=== PATIENT | female | born 1995 | race Two or more races ===

== ENCOUNTER 2020-10-29 23:08 | Emergency (ER) | payer MEDICAID ==
[~2020-10-29] VITALS: Ht 160 cm; Wt 73.9 kg
[2020-10-29] MEDS ORDERED: ACETAMINOPHEN ES 500 MG TABLET PO ONE (23:15)
[2020-10-29] MEDS ORDERED: ONDANSETRON 4 MG/2 ML VIAL IV ONE (23:15)
[2020-10-29] MEDS ORDERED: IV NORMAL SALINE 1000 ML BAG IV ONE (23:15)
--- NOTE | 2020-10-29 23:20 | NUR ---
Patient ambulated with steady gait. A/Ox4. Speech is clear, speaks in complete sentences. Patient came for c/o non-radiating left-sided flank pain. Patient was at another ER yesterday and was evaluated to have a stone on the US reading. Patient denies any n/v, denies any fever. Patient overall pain leve 10/10, and is unable to sit still in bed. Patient in bed at lowest position, sr upx2, call light within reach. Safety precautions implemented per protocol.
[2020-10-29] MEDS ORDERED: MORPHINE SULFATE 4 MG/1 ML DISP.SYRIN IV ONE (23:30)
[2020-10-29] MEDS ORDERED: MORPHINE SULFATE 4 MG/1 ML DISP.SYRIN ONE (23:34)
[2020-10-29] MEDS ORDERED: ONDANSETRON 4 MG/2 ML VIAL ONE (23:35)
[2020-10-29] MEDS ORDERED: ACETAMINOPHEN ES 500 MG TABLET ONE (23:35)
[2020-10-29 23:36] LABS: BASOPHILS # (AUTO) 0.1 K/uL (0.0-8.0); BASOPHILS % (AUTO) 0.5 % (0.0-2.0); EOSINOPHILS # (AUTO) 0.3 K/uL (0.0-0.7); EOSINOPHILS % (AUTO) 2.1 % (0.0-7.0); HEMOGLOBIN 13.4 g/dL (10.9-14.3); LYMPHOCYTES # (AUTO) 4.3 K/uL (20.0-40.0); LYMPHOCYTES % (AUTO) 30.7 % (20.5-51.5); MEAN CORPUSCULAR HEMOGLOBIN 30.4 uug (24.7-32.8); MEAN CORPUSCULAR HGB CONC 34 g/dL (32.3-35.6); MONOCYTES % (AUTO) 6.9 % (0.0-11.0); NEUTROPHILS # (AUTO) 8.4 K/uL (1.8-8.9); NEUTROPHILS % (AUTO) 59.8 % (38.5-71.5); PLATELET COUNT (AUTO) 312 K/uL (179-408); RED BLOOD CELL COUNT(AUTO) 4.39 MIL/uL (3.63-4.92); WHITE BLOOD COUNT (AUTO) 14.1 K/uL (3.8-11.8)
--- NOTE | 2020-10-29 23:40 | NUR ---
LADARIUS Whittaker has called Radiology to reach out to [facility] for scan.
[2020-10-29] MEDS ORDERED: CEFTRIAXONE 1 G in IV DEXTROSE 5% 50 ML IV ONE (23:45)
[2020-10-29] MEDS ORDERED: MAGNESIUM SULFATE 2 GM in IV DEXTROSE 5% 100 ML IV ONE (23:45)
[2020-10-29 23:53] LABS: BILIRUBIN,DIRECT 0.1 mg/dL (0.0-0.2); BILIRUBIN,TOTAL 0.3 mg/dL (0.2-1.0); CREATININE 0.7 mg/dL (0.6-1.3); POTASSIUM 3.5 mmol/L (3.5-5.1); TOTAL PROTEIN, SERUM 7.4 g/dL (6.4-8.2)
[2020-10-30] MEDS ORDERED: CEFTRIAXONE /D5W 50ML IVPB **ER PYXIS IV ONE
[2020-10-30] MEDS ORDERED: MAGNESIUM SULFATE 1 GM/2 ML VIAL ONE (00:03)
--- NOTE | 2020-10-30 00:19 | NUR ---
Patient denies any acute distress at this time, states pain is more tolerable. Will continue to monitor.
[2020-10-30] MEDS ORDERED: MORPHINE SULFATE 4 MG/1 ML DISP.SYRIN IV ONE (00:30)
[2020-10-30] MEDS ORDERED: MORPHINE SULFATE 4 MG/1 ML DISP.SYRIN ONE (00:55)
[2020-10-30 00:57] LABS: *BILIRUBIN,URIN NEGATIVE (NEGATIVE); *BLOOD, URINE 2+ (NEGATIVE); *CLARITY,URINE SLIGHTLY CLOUDY (CLEAR); *COLOR,URINE YELLOW (YELLOW); *KETONES,URINE NEGATIVE (NEGATIVE); *UROBILINOGEN,URINE 0.2 E.U./dl (NORMAL); LEUKOCYTE ESTERASE ,URINE 1+ (NEGATIVE); NITRITE, URINE NEGATIVE (NEGATIVE); UGLUCOSE NEGATIVE (NEGATIVE)
[2020-10-30 01:17] LABS: BACTERIA,URINE MODERATE /HPF (NONE SEEN); MUCUS,URINE FEW /LPF (0-FEW); SQUAMOUS EPITHELIAL CELL,UR MANY /HPF (NONE SEEN); URINE AMORPHOUS PHOSPHATES FEW /HPF; WBC,URINE 80-100 /HPF (0-3)
--- NOTE | 2020-10-30 01:40 | NUR ---
Patient discharged to home in stable condition. Written and verbal after care instructions given. Patient verbalizes understanding of instructions. Stressed follow up or return to ER for worsening s/s. Patient out of ER with steady gait, no acute signs of distress, VSS, all belongings taken, IV site discontinued, all belongings taken, IV site discontinued, provided with copies of lab and ultrasound results, instructed not to drive to be driven home by boyfriend via private vehicle.
[2020-10-30 01:41] VITALS: BP 120/72
== END 2020-10-30 01:41 | disposition home or self-care (01) ==
LOC: ER 23:08
DX: O23.01 Infections of kidney in pregnancy, first trimester (principal); Z3A.09 9 weeks gestation of pregnancy; R11.0 Nausea
CPT/HCPCS: 36415; 76700; 76819; 80048; 80076; 81001; 83690; 84702; 85025; 85730; 87086; 96365; 96375 ×2; 96376; 99285; J0696; J2270 ×2; J2405; J3475; J7060; A9150; J7030